=== PATIENT | female | born 1995 ===

== ENCOUNTER 2022-12-05 15:59 | Outpatient (CLI) | payer OTHER | END 2022-12-05 17:05 | disposition home or self-care (01) | LOC: PRENATAL 15:59 | PROVIDERS: ATTEND Obstetrics & Gynecology Maternal & Fetal Medicine | DX: O35.9XX0 Maternal care for (suspected) fetal abnormality and damage, unspecified, not applicable or unspecified (principal); O35.3XX0 Maternal care for (suspected) damage to fetus from viral disease in mother, not applicable or unspecified; Z3A.20 20 weeks gestation of pregnancy ==

== ENCOUNTER 2023-03-02 13:42 | Outpatient (CLI) | payer OTHER | END 2023-03-02 16:30 | disposition home or self-care (01) | LOC: PRENATAL 13:42 | PROVIDERS: ATTEND Obstetrics & Gynecology Maternal & Fetal Medicine | DX: O26.849 Uterine size-date discrepancy, unspecified trimester (principal); O36.8199 Decreased fetal movements, unspecified trimester, other fetus; Z3A.33 33 weeks gestation of pregnancy ==

== ENCOUNTER 2023-04-13 03:52 | Inpatient (IN) | payer OTHER ==
[~2023-04-13] VITALS: Ht 152.4 cm; Wt 66.2 kg
[2023-04-13] MEDS ORDERED: PRENATAL + DHA1 EAC1 PO (05:15)
== END 2023-04-16 14:53 | disposition home or self-care (01) | DRG 788 ==
LOC: LDR 03:52 → OB/GYN 23:42
PROVIDERS: ADMIT Obstetrics & Gynecology; ATTEND Obstetrics & Gynecology
PROC: 4A1HXCZ Monitoring of Products of Conception, Cardiac Rate, External Approach (ICD-10-PCS; 2023-04-13)
PROC: 10D00Z1 Extraction of Products of Conception, Low, Open Approach (ICD-10-PCS; principal; 2023-04-13 23:45)
DX: O62.1 Secondary uterine inertia (principal); O36.63X0 Maternal care for excessive fetal growth, third trimester, not applicable or unspecified; O99.824 Streptococcus B carrier state complicating childbirth; Z3A.39 39 weeks gestation of pregnancy; Z37.0 Single live birth; Z20.822 Contact with and (suspected) exposure to COVID-19